=== PATIENT | male | born 1965 | race Caucasian/White ===

== ENCOUNTER 2019-09-30 08:04 | Emergency (ER) | payer BC, OTHER ==
[2019-09-30 08:17] VITALS: BP 142/97
--- NOTE | 2019-09-30 08:30 | UC ---
Knee Pain HPI - HPI Summary HPI Summary: 54 yo with left knee pain x 3 weeks, began following a day of doing radha work x 8 hours. Recalls no specific injury, but essentially did a lot of lunging and squatting. NO past left knee injury, but had a right knee meniscal tear x several years ago, surgically treated by Dr. Chan. Increasing pain with weight bearing. Has not used ice. Occasional use of ibuprofen 600mg. - History of Current Complaint Chief Complaint: UCLowerExtremity Stated Complaint: LT KNEE INJURY Time Seen by Provider: 09/30/19 08:19 Hx Obtained From: Patient Onset/Duration: Gradual Onset, Lasting Weeks Severity Initially: Moderate Severity Currently: Moderate Pain Intensity: 5 Character: Aching, Stiffness Aggravating Factor(s): Weight Bearing, Prolonged Standing, Stairs Alleviating Factor(s): Rest, OTC Meds Associated Signs And Symptoms: Positive: Swelling Able to Bear Weight: Yes - Risk Factors Septic Arthritis Risk Factor: Negative Gout Risk Factor: Age ^ 38, Male, HTN - Allergies/Home Medications Allergies/Adverse Reactions: Allergies Allergy/AdvReac Type Severity Reaction Status Date / Time No Known Allergies Allergy Verified 09/30/19 08:13 Home Medications: Home Medications Citalopram TAB* [CeleXA TAB*] 40 mg PO QAM 08/31/15 [History Confirmed 09/30/19] Losartan TAB* [Cozaar TAB*] 100 mg PO DAILY 09/30/19 [History Confirmed 09/30/19 ] PMH/Surg Hx/FS Hx/Imm Hx Previously Healthy: Yes Cardiovascular History: Hypertension - Surgical History Surgical History: Yes Surgery Procedure, Year, and Place: SURGERY ON TEETH. 1995 FATTY TUMOR REMOVED FROM BACK, [place]. VASECTOMY, OFFICE - Family History Known Family History: Positive: Hypertension - mother - Social History Occupation: Employed Full-time Lives: With Family Alcohol Use: Daily Alcohol Amount: BEER Substance Use Type: None Smoking Status (MU): Heavy Every Day Tobacco Smoker Type: Cigarettes Amount Used/How Often: 1/2 PPD ON AND OFF FOR 20 YEARS Review of Systems All Other Systems Reviewed And Are Negative: Yes Constitutional: Positive: Negative Skin: Positive: Negative Eyes: Positive: Negative ENT: Positive: Negative Respiratory: Positive: Negative Cardiovascular: Positive: Other - controlled hypertension, today's is an unusual reading for him. Does regular home checks. Gastrointestinal: Positive: Negative Genitourinary: Positive: Negative Motor: Positive: Negative Neurovascular: Positive: Negative Musculoskeletal: Positive: Arthralgia Neurological/Mental Status: Positive: Negative Psychological: Positive: Negative Is Patient Immunocompromised?: No Physical Exam Triage Information Reviewed: Yes Appearance: Well-Appearing, Pain Distress - mild to moderate, Obese Vital Signs: Initial Vital Signs Temp 97.4 F 09/30/19 08:12 Pulse 75 09/30/19 08:12 Resp 16 09/30/19 08:12 BP 142/97 09/30/19 08:12 Pulse Ox 99 09/30/19 08:12 ENT: Positive: Normal ENT inspection Respiratory Exam: Normal Cardiovascular Exam: Normal Musculoskeletal Exam: Other - antalgic gait, mild to moderate effusion visible. Musculoskeletal: Positive: No Edema, ROM Limited @ - left knee with active flexion to 90 degrees (can flex to >100 on the right). Tenderness insertion of medial collateral ligament. Negative Lachmann's, negative MacMurray's but manipulation of knee limited by pain. Tenderness with medial joint stress. Neurological: Positive: Alert, Muscle Tone Normal Psychological Exam: Normal Skin Exam: Normal Diagnostics - Radiology No standard instances Radiology Interpretation Completed By: ED Physician - mild medial joint space loss., Radiologist Summary of Radiographic Findings: Per Dr. Elder: no fracture of the knee is noted. Knee Pain Course/Dx - Course Course Of Treatment: Discussed ice, elevation, non-weight bearing. He has crutches at home from last year. Acetaminophen for control of pain. - Differential Dx/Diagnosis Differential Diagnosis/HQI/PQRI: Internal Derangement Of Knee, Patellofemoral Syndrome, Sprain Provider Diagnosis: Sprain of medial collateral ligament of knee Discharge ED - Sign-Out/Discharge Documenting (check all that apply): Patient Departure All imaging exams completed and their final reports reviewed: Yes - Discharge Plan Condition: Stable Disposition: HOME Patient Education Materials: Swollen Knee Joint (ED) Forms: *Work Release Referrals: Jasson Martino MD [Primary Care Provider] - Naeem Stanley MD [Medical Doctor] - Additional Instructions: Use your crutches to decrease weight bearing on the left knee. Please arrange an evaluation with Dr. Stanley, your orthopedist. Ice the knee for 15 to 20 minutes every 3 to 4 hours. Use acetaminophen 650mg every 6 hours as needed for control of pain. Your blood pressure is elevated today; as reviewed, you do regular chekcs at home. - Billing Disposition and Condition Condition: STABLE Disposition: Home
== END 2019-09-30 09:28 | disposition home or self-care (01) ==
LOC: UCCORT 08:04
DX: S83.412A Sprain of medial collateral ligament of left knee, initial encounter (principal); X58.XXXA Exposure to other specified factors, initial encounter; Y92.9 Unspecified place or not applicable; I10 Essential (primary) hypertension; Z79.899 Other long term (current) drug therapy; F17.210 Nicotine dependence, cigarettes, uncomplicated
CPT/HCPCS: 99211; G0463